=== PATIENT | male | born 1965 | race Caucasian/White ===

== ENCOUNTER → 2020-04-14 09:44 | Outpatient (BNVA) | payer OTHER, SELFPAY | PROVIDERS: Family Provider Nurse Practitioner; PCP Nurse Practitioner; Visit Provider Nurse Practitioner | DX: M25.512 Pain in left shoulder (principal) | CPT/HCPCS: 73030 ==

== ENCOUNTER → 2021-07-13 15:27 | Outpatient (BNVA) | payer OTHER, SELFPAY | PROVIDERS: Family Provider Nurse Practitioner; PCP Nurse Practitioner; Visit Provider Urology | DX: N52.1 Erectile dysfunction due to diseases classified elsewhere (principal) | CPT/HCPCS: 81003 ==

== ENCOUNTER → 2021-12-22 10:44 | Outpatient (BNVA) | payer OTHER, SELFPAY | PROVIDERS: Family Provider Nurse Practitioner; PCP Nurse Practitioner; Visit Provider Nurse Practitioner Family | DX: J32.9 Chronic sinusitis, unspecified (principal); K42.9 Umbilical hernia without obstruction or gangrene; I10 Essential (primary) hypertension | CPT/HCPCS: 80053; 80061 ==

== ENCOUNTER 2022-03-01 06:40 | Outpatient (CLI) | payer OTHER, SELFPAY ==
--- NOTE | 2022-03-01 07:00 | US_ITS ---
WS: [id number] ULTRASOUND SOFT TISSUES. Periumbilical region. HISTORY: K42.9 - Umbilical hernia without obstruction or gangrene COMPARISON: None available. TECHNIQUE: 2-D and color Doppler imaging is submitted. Mixed echogenicity at the umbilical level. Consistent with omental fat. No peristalsis is identified. No adjacent fluid. The protrusion omental fat measures 2.5 x 1.7 cm and extends over a length of 4.2 cm. There are few cystic areas within the omental fat. No peristalsis. US/US abdomen limited 60750 IMPRESSION: Umbilical hernia contains fat. No peristalsing loops of bowel.
== END 2022-03-01 06:41 | disposition home or self-care (01) ==
PROVIDERS: PCP Nurse Practitioner; Visit Provider Nurse Practitioner Family
DX: K42.9 Umbilical hernia without obstruction or gangrene (principal)
CPT/HCPCS: 76705

== ENCOUNTER 2022-03-25 06:11 | Emergency (ER) | payer OTHER, SELFPAY ==
[2022-03-25 06:13] VITALS: BP 166/88; PULSE 60; RESP 18; TEMP 36.7; O2SAT 99; BMI 38.0
[2022-03-25 06:19] VITALS: BP 162/95; RESP 18; O2SAT 98
--- NOTE | 2022-03-25 06:32 | CTR_ITS ---
PROCEDURE INFORMATION: Exam: CT Abdomen And Pelvis With Contrast Exam date and time: 03/25/2022 7:03 AM Age: 56 years old Clinical indication: Abdominal pain; Flank; Right; Additional info: Right flank pain TECHNIQUE: Imaging protocol: Computed tomography of the abdomen and pelvis with contrast. Radiation optimization: All CT scans at this facility use at least one of these dose optimization techniques: automated exposure control; mA and/or kV adjustment per patient size (includes targeted exams where dose is matched to clinical indication); or iterative reconstruction. Contrast material: OMNI 350; Contrast volume: 95 ml; Contrast route: INTRAVENOUS (IV); COMPARISON: US abdomen limited [id number] 03/01/2022 7:02 AM RADIATION DOSE METRICS: Total DLP (mGy-cm): 1372.53 FINDINGS: Lungs: The visualized portions of the lung bases are normal. Liver: Normal enhancement. No mass. Gallbladder and bile ducts: 9 x 5 mm gallstone is seen. No gallbladder wall thickening or pericholecystic fluid. No biliary ductal dilatation. Pancreas: Normal contour and enhancement. No ductal dilation. Spleen: Normal enhancement. No splenomegaly. Adrenal glands: Normal contour. No mass. Kidneys and ureters: Delayed right nephrogram is seen. There is [id number] right hydronephrosis and ureterectasis with a right ureterovesicular junction 2 x 2 mm calculus (series 4, image 89 and series 6, image 50) at the level of the hip joint. Normal enhancement of the left kidney. No renal masses. No left hydronephrosis, ureterectasis or ureteral calculi. Stomach and bowel: The noncontrast opacified stomach appears unremarkable. The noncontrast opacified small bowel loops appear unremarkable. The noncontrast opacified colonic loops appear unremarkable.The lack of orally administered contrast material limits bowel assessment. Appendix: No appendix is specifically identified. There is no evidence of fluid collections or inflammatory stranding in the right lower quadrant. Intraperitoneal space: No free air. No significant fluid collection. Vasculature: No abdominal aortic aneurysm. IVC and portal venous structures are unremarkable. Lymph nodes: No enlarged lymph nodes. Urinary bladder: No bladder wall thickening or debris. Reproductive: The prostate demonstrates mild nonspecific enlargement. The seminal vesicles are normal. Recommend correlation with clinical exam findings and PSA level assessment. Bones/joints: No acute osseous abnormality seen. Large superior endplate Schmorl's node is seen at the L3 level. Small superior endplate Schmorl's node is seen at the L2 level. Some lumbar spine degenerative osteophytes are seen. Mild bilateral hip degenerative changes are seen. Soft tissues: Small bilateral inguinal hernias are seen, containing peritoneal fat. Small umbilical hernia is seen, containing peritoneal fat. CT/CT abdomen pelvis w con* [id number] IMPRESSION: 1. Delayed right nephrogram. [id number] right hydronephrosis and ureterectasis with a right ureterovesicular junction 2 x 2 mm calculus (series 4, image 89 and series 6, image 50) at the level of the hip joint. 2. Gallstone.
--- NOTE | 2022-03-25 06:35 | ED_ITS ---
HPI - Abdominal Pain General: Chief Complaint: Abdominal Pain Stated Complaint: Lower back pain into abd area Time Seen by Provider: 03/25/22 06:20 Source: patient and family Mode of arrival: ambulatory Limitations: no limitations History of Present Illness: This patient comes to the emergency department this morning because of concerns of right flank and right abdominal pain. He states he was sleeping and was awakened approximately 4 AM by the symptoms. He states they are seemingly grabbing and do come and go a bit. He states there is some radiation to his right lower abdomen. He has never experienced symptoms like this previously. He states he had the urge to defecate but only is able to defecate a small amount and during the the act of increasing abdominal pressure he has momentary reduction in his symptoms. He denies any recent back injury. He states he has been in a feels working pretty normally the last several days. He does admit to drinking less water than usual. He states he is only produced a small amount of urine this morning and it is elizabeth in color. He denies any f madan or chills. He denies any history of cardiovascular symptoms to include chest pain, dyspnea exertion etc. No recent lifting etc. He is never smoked tobacco. He has been told he had an umbilical hernia that is scheduled for repair. He has never had a CAT scan. Does have a family history of kidney stones. MD elicited complaint: flank pain Pertinent past history: none Pain Consistency: intermittent and colicky Location: R flank Quality: cramping and dull Exacerbating factors: nothing Relieving factors: bowel movement Associated Symptoms: Reports no associated symptoms, nausea and vomiting; Denies chills, constipation, diarrhea, dysuria, fever(s), hematemesis, melena and syncope Review of Systems Const: Denies: fever(s) or chills Eyes: Denies: change in vision ENMT: Denies: throat pain, odynophagia, nasal discharge or nasal congestion Card: Denies: chest pain, palpitations, syncope or pre-syncope Resp: Denies: dyspnea, productive cough or non-productive cough GI: Reports: nausea and vomiting; Denies: hematemesis, diarrhea, constipation, pain on defecation or melena : Reports: flank pain and oliguria; Denies: dysuria, urinary frequency, urinary urgency or urinary dribbling Musc: Denies: neck pain, extremity pain or extremity swelling Skin/Breast: Denies: rash Neuro: Denies: headache(s), numbness in extremities or weakness in extremities Psych: Denies: anxiety or depression Endo: Denies: polyuria or polydipsia PFSH ED PFSH: Medical History (Updated 03/25/22 @ 08:35 by Jeevan Shetty DO) ROBBI on CPAP Surgical History No history of previous surgery Family History Father , AT AGE 89, UNKNOWN CAUSE No problems noted. 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 Const: COMMON NORMALS: patient oriented x3, no limitations and well nourished NUTRITIONAL APPEARANCE: overweight ORIENTATION/CONSCIOUSNESS: Yes awake HENMT: COMMON NORMALS: normocephalic, Normal nasal mucous membranes and turbinates present, moist oral mucous membranes and oropharynx normal HEAD & SCALP: normocephalic FACE & SINUS: normal facial exam NOSE: Normal nasal mucous membranes and turbinates present Eye: COMMON NORMALS: Equal, round and reactive pupils present, EOMs intact bilaterally and conjunctivae normal CONJUNCTIVA: Yes conjunctivae normal PUPIL: Yes Equal, round and reactive pupils present Neck/C-Spine: COMMON NORMALS: full ROM, no lymphadenopathy, no JVD and No carotid bruits Lymph: LYMPHATIC: no lymphadenopathy noted Chest: COMMONS NORMALS: normal inspection of the chest Resp: COMMON NORMALS: normal respiratory effort, No use of accessory muscles and clear to auscultation bilaterally AUSCULTATION: clear to auscultation bilaterally Cardio: COMMON NORMALS: no JVD, regular rate, regular rhythm, No murmurs present (Cardio) and Peripheral pulses 2+ throughout RATE: regular rate RHYTHM: regular rhythm PERIPHERAL PULSES: Peripheral pulses 2+ throughout GI: COMMON NORMALS: Normal to inspection, nondistended, normoactive bowel sounds present, no masses and no bruits OTHER: Tenderness right flank. No rebound no guarding. No ecchymosis. No skin rash. : BLADDER/KIDNEY EXAM: Yes CVA tenderness Back/Pelvis: COMMON NORMALS: thoracic and lumbar spine normal to inspection, thoraco-lumbar ROM normal and straight leg raise negative bilaterally GENERAL BACK: Yes CVA tenderness CVA tenderness: right, No erythema and No ecchymosis Extremity: COMMON NORMALS: normal to inspection, full ROM, capillary refill normal, no calf tenderness and no pedal edema Neuro: COMMON NORMALS: patient oriented x3, moves all extremities, no focal motor deficits and no sensory deficits noted CRANIAL NERVES: Yes CN normal except as noted Psych: COMMON NORMALS: mental status grossly normal Skin: COMMON NORMALS: no rashes or lesions noted, turgor normal, no jaundice and no petechiae GENERAL SKIN EXAM: no rashes or lesions noted and turgor normal Course Reevaluation(s): Reevaluation #1: Patient remains comfortable with significant pain improvement. No new or focal findings. Discussed expected course based on current findings. No evidence of infection or other renal dysfunction at this time. Discussed return precautions. Time: 08:34 Vital Signs: Vital signs: Vital Signs Temperature 98.1 F 03/25/22 06:13 Pulse Rate 76 03/25/22 07:44 Respiratory Rate 16 03/25/22 07:44 Blood Pressure 148/91 03/25/22 07:44 Pulse Oximetry 94 03/25/22 07:44 Oxygen Delivery Me thod 03/25/22 07:44 MDM - Abdominal Pain Medical Decision Making Gentleman comes to the emergency department with acute onset of right flank pain. Low risk for atherosclerosis or aneurysmal disease however imaging was undertaken in addition to other ancillary studies. Contrasted CT revealed right distal ureteral stone without any significant other concerning findings. Urinalysis is reassuring. He is comfortable and controlled. Plan on discharge to outpatient follow-up. Medical Records I reviewed the patient's medical records. Lab Data I reviewed the patient's lab results. : 03/25/22 06:32 03/25/22 06:32 Labs/Radiology: Radiology Impressions Abdomen/Pelvis CT 03/25/22 06:32 IMPRESSION: 1. Delayed right nephrogram. [id number] right hydronephrosis and ureterectasis with a right ureterovesicular junction 2 x 2 mm calculus (series 4, image 89 and series 6, image 50) at the level of the hip joint. 2. Gallstone. Laboratory Results WBC 7.6 10^3/uL (4.0-10.0) 03/25/22 06:32 RBC 5.04 10^6/uL (4.1-5.3) 03/25/22 06:32 Hgb 15.4 g/dL (11.7-16.6) 03/25/22 06:32 Hct 45.7 % (42.0-52.0) 03/25/22 06:32 MCV 90.7 fl (80-94) 03/25/22 06:32 MCH 30.6 pg (28.0-34.0) 03/25/22 06:32 MCHC 33.7 g/dL (30.0-36.0) 03/25/22 06:32 RDW 12.8 % (12.1-15.1) 03/25/22 06:32 Plt Count 179 10^3/cmm (130-400) 03/25/22 06:32 MPV 12.0 fL (7.4-10.4) H 03/25/22 06:32 Neut % (Auto) 71.1 % 03/25/22 06:32 Lymph % (Auto) 17.2 % 03/25/22 06:32 [place] % (Auto) 8.6 % 03/25/22 06:32 Eos % (Auto) 2.1 % 03/25/22 06:32 Baso % (Auto) 0.5 % 03/25/22 06:32 Neut # (Auto) 5.40 10^3/uL (1.8-7.7) 03/25/22 06:32 Lymph # (Auto) 1.3 10^3/uL (0.8-4.8) 03/25/22 06:32 [place] # (Auto) 0.7 10^3/uL (0.2-0.9) 03/25/22 06:32 Eos # (Auto) 0.2 10^3/uL (0.0-0.8) 03/25/22 06:32 Baso # (Auto) 0.0 10^3/uL (0.0-0.1) 03/25/22 06:32 Nucleated RBC % (auto) 0 % 03/25/22 06:32 Nucleated RBCs # 0.0 /100WBC 03/25/22 06:32 Sodium 143 mmol/L (136-145) 03/25/22 06:32 Potassium 3.9 mmol/L (3.5-5.1) 03/25/22 06:32 Chloride 108 mmol/L (98-107) H 03/25/22 06:32 Carbon Dioxide 23 mmol/L (22-29) 03/25/22 06:32 Anion Gap 15.9 (5-19) 03/25/22 06:32 BUN 16 mg/dL (6-20) 03/25/22 06:32 Creatinine 1.0 mg/dL (0.7-1.2) 03/25/22 06:32 GFR Calculation 77.0 mL/min (90-130) L 03/25/22 06:32 Glucose 141 mg/dL (65-115) H 03/25/22 06:32 Calculated Osmolality 300 mOsm/kg (285-295) H 03/25/22 06:32 Calcium 8.8 mg/dL (8.5-10.5) 03/25/22 06:32 Total Bilirubin 0.6 mg/dL (0.15-1.2) 03/25/22 06:32 AST 22 U/L (0-40) 03/25/22 06:32 ALT 33 U/L (0-41) 03/25/22 06:32 Alkaline Phosphatase 89 U/L (40-130) 03/25/22 06:32 Total Protein 6.7 g/dL (6.6-8.7) 03/25/22 06:32 Albumin 3.9 g/dL (3.5-5.2) 03/25/22 06:32 Globulin 2.8 g/dL (1.3-4.6) 03/25/22 06:32 Urine Color Yellow (Yellow) 03/25/22 07:52 Urine Appearance Clear (CLEAR) 03/25/22 07:52 Urine pH 5 (5-7) 03/25/22 07:52 Ur Specific [place] 1.005 (1.005-1.030) 03/25/22 07:52 Urine Protein Neg (Negative) 03/25/22 07:52 Urine Glucose (UA) Norm (Normal) 03/25/22 07:52 Urine Ketones Negative (Negative) 03/25/22 07:52 Urine Blood 2+ (Negative) H 03/25/22 07:52 Urine Nitrate Negative (Negative) 03/25/22 07:52 Urine Bilirubin Neg (Negative) 03/25/22 07:52 Urine Urobilinogen Norm mg/dL (Negative) 03/25/22 07:52 Ur Leukocyte Esterase Negative (Negative) 03/25/22 07:52 Urine RBC 0-4 /hpf (0-2) H 03/25/22 07:52 Urine WBC None /hpf (0-5) 03/25/22 07:52 Ur Squamous Epith Cells None /hpf (0-5) 03/25/22 07:52 Amorphous Sediment Not Reportable 03/25/22 07:52 Urine Bacteria None /hpf (NONE) 03/25/22 07:52 Urine Mucus Trace /hpf 03/25/22 07:52 Discharge Plan Discharge Patient Disposition: Home Clinical Impression: Renal calculus, right Condition: Stable Prescriptions: New Flomax 0.4 mg capsule 0.4 mg PO DAILY Qty: 7 0RF Levsin 0.125 mg tablet 0.125 mg PO TID PRN (Reason: spasms) Qty: 20 0RF ketorolac 10 mg tablet 10 mg PO Q8H PRN (Reason: pain) Qty: 14 0RF No Action famotidine 10 mg tablet 10 mg PO DAILY tadalafil 20 mg tablet 20 mg PO DAILY PRN (Reason: sexual activity) Qty: 20 12RF Rx Instructions: administer approximately 30min before sexual activity; NO NITROGLYCERIN! sildenafil 100 mg tablet 100 mg PO DAILY PRN (Reason: sexual activity) Qty: 20 12RF Rx Instructions: 1 hour before intercourse on empty stomach. NO NITROGLYCERIN! valsartan [Diovan] 40 mg tablet 40 mg PO DAILY Qty: 90 1RF promethazine-DM 6.25-15 mg/5 mL syrup 5 ml PO Q6H PRN (Reason: cough) Qty: 120 0RF amoxicillin-pot clavulanate 875-125 mg tablet 1 tab PO BID Qty: 20 0RF Discharge Orders: Discharge ED (Routine); Ordered 03/25/22 Ordered By: Jeevan Shetty Referrals: Javier Robertson, [facility] [Primary Care Provider] - 4-7 days (kidney stone) Discharge Diet: Usual diet Discharge Activity: Increase activity as tolerated Patient Instructions: Opioid Safety, Pain Management Activity Restrictions/Additional Instructions: As we discussed you have a kidney stone. Make sure you drink at least 2 quarts of water in addition to your other fluids daily. Take the medications as prescribed. If you develop fever, increasing pain seek care immediately otherwise follow-up with your primary care clinic in the next week to 10 days. Coding Level of Care Code ED Campus Safety Officer for [place] Fwd Exam Comprehensive
--- NOTE | 2022-03-25 06:40 | PC.NURSE ---
patient unable to provide urine sample at this time, voided amount inadequate.
[2022-03-25 06:43] LABS: Basophils % 0.5 %; Eosinophils # 0.2 10^3/uL (0.0-0.8); Eosinophils % 2.1 %; Hematocrit 45.7 % (42.0-52.0); Hemoglobin 15.4 g/dL (11.7-16.6); Lymphocytes # 1.3 10^3/uL (0.8-4.8); Lymphocytes % 17.2 %; Mean Corpuscular HGB Conc 33.7 g/dL (30.0-36.0); Mean Corpuscular Hemoglobin 30.6 pg (28.0-34.0); Mean Corpuscular Volume 90.7 fl (80-94); Monocytes # 0.7 10^3/uL (0.2-0.9); Monocytes % 8.6 %; Neutrophils % 71.1 %; Nucleated Red Blood Cells % 0 %; Platelet Count 179 10^3/cmm (130-400); Red Blood Count 5.04 10^6/uL (4.1-5.3); Red Cell Distribution Width 12.8 % (12.1-15.1); White Blood Count 7.6 10^3/uL (4.0-10.0)
[2022-03-25 06:48] VITALS: RESP 19
[2022-03-25] MEDS: ondansetron 2 mg/ML SDV 2 mL 4 MG IVP (06:48)
[2022-03-25] MEDS: HYDROmorphone 1 mg/mL INJ 1 mL IVP (06:48)
[2022-03-25] MEDS: sodium chloride 0.9% 1,000 ML 999 ML IV (06:48)
[2022-03-25 07:06] LABS: Alanine Aminotransferase 33 U/L (0-41); Albumin Level 3.9 g/dL (3.5-5.2); Alkaline Phosphatase 89 U/L (40-130); Anion Gap 15.9 (5-19); Aspartate Amino Transferase 22 U/L (0-40); Blood Urea Nitrogen 16 mg/dL (6-20); Calcium 8.8 mg/dL (8.5-10.5); Carbon Dioxide 23 mmol/L (22-29); Chloride 108 mmol/L (98-107); Globulin 2.8 g/dL (1.3-4.6); Glucose 141 mg/dL (65-115); Osmolality Calculated 300 mOsm/kg (285-295); Potassium 3.9 mmol/L (3.5-5.1); Sodium 143 mmol/L (136-145); Total Bilirubin 0.6 mg/dL (0.15-1.2); Total Protein 6.7 g/dL (6.6-8.7)
[2022-03-25] MEDS: iohexol 350 mg/mL 100 mL Btl IV (07:12)
[2022-03-25] MEDS: ketorolac 30 mg/mL INJ 15 MG IVP (07:27)
[2022-03-25] MEDS: tamsulosin 0.4 mg Capsule PO (07:43)
[2022-03-25 07:44] VITALS: BP 148/91; PULSE 76; RESP 16; O2SAT 94
[2022-03-25 08:22] LABS: Add Urine Microscopic? YES; Bilirubin Urine Neg (Negative); Blood Urine 2+ (Negative); Glucose Urine UA Norm (Normal); Ketones Urine Negative (Negative); Leukocyte Esterase Urine Negative (Negative); Mucus Urine TRACE /hpf; Nitrate Urine Negative (Negative); Protein Urine Neg (Negative); RBC Urine 0-4 /hpf (0-2); Specific Gravity, Urine 1.005 (1.005-1.030); Urine Appearance Clear (CLEAR); Urine Color Yellow (Yellow); Urobilinogen Urine Norm (Negative); pH Urine 5 (5-7)
[2022-03-25 08:24] LABS: Add Urine Culture? No
[2022-03-25 08:45] VITALS: BP 161/80; PULSE 63; RESP 21; O2SAT 98
== END 2022-03-25 08:46 | disposition home or self-care (01) ==
PROVIDERS: Emergency Provider Emergency Medicine; PCP Nurse Practitioner
DX: N13.2 Hydronephrosis with renal and ureteral calculous obstruction (principal); K80.80 Other cholelithiasis without obstruction; G47.33 Obstructive sleep apnea (adult) (pediatric); Z87.891 Personal history of nicotine dependence
CPT/HCPCS: 74177; 80053; 81001; 85025; 96361; 96374; 96375; 99285; J1170; J1885; J2405; J7030; Q9967

== ENCOUNTER 2022-06-27 07:18 | Outpatient (CLI) | payer OTHER, SELFPAY ==
--- NOTE | 2022-06-27 07:45 | US_ITS ---
WS: [id number] Gallbladder and right upper quadrant ultrasound, 06/27/2022 Clinical Data: gallbladder stone on CT scan Comparison: CT abdomen and pelvis, 03/25/2022 Findings: The gallbladder shows gallstones. The wall measures 0.3 cm which is the upper limits of normal with n o pericholecystic fluid. The common bile duct is 0.6 cm and there are no intrahepatic ductal abnormalities. Liver shows no cysts, masses or dilated intrahepatic ducts. The liver is enlarged measuring 26.23 cm with dense echotexture. The portal vein shows normal flow. The pancreas is not obscured by overlying bowel gas and no cyst, pseudocyst, or evidence of pancreati tis is noted. Right kidney measures 15.5 cm and no cyst, masses or hydronephrosis can be seen. The aorta measures 2.22 cm in greatest dimension and the inferior vena cava measures 2.07 cm. US/US gall bladder 25209 Impression: 1. Cholelithiasis with gallbladder wall at the upper limits of normal. 2. Hepatomegaly with dense liver.
== END 2022-06-27 07:19 | disposition home or self-care (01) ==
PROVIDERS: PCP Nurse Practitioner; Visit Provider Surgery
DX: K80.20 Calculus of gallbladder without cholecystitis without obstruction (principal); R16.0 Hepatomegaly, not elsewhere classified
CPT/HCPCS: 76705

== ENCOUNTER → 2022-07-12 12:02 | Outpatient (BNVA) | payer OTHER, SELFPAY | PROVIDERS: PCP Nurse Practitioner; Visit Provider Nurse Practitioner | DX: I10 Essential (primary) hypertension (principal); E11.65 Type 2 diabetes mellitus with hyperglycemia; E66.9 Obesity, unspecified; K76.0 Fatty (change of) liver, not elsewhere classified; G47.33 Obstructive sleep apnea (adult) (pediatric); Z99.89 Dependence on other enabling machines and devices | CPT/HCPCS: 80053; 80061; 83036 ==

== ENCOUNTER 2022-08-15 07:44 | Day surgery (SDC) | payer OTHER, SELFPAY ==
[2022-08-13 12:57] VITALS: BMI 37.7
[2022-08-15 08:12] VITALS: BP 166/89; PULSE 81; RESP 18; TEMP 36.6; O2SAT 96
[2022-08-15] MEDS: sodium chloride 0.9% 1,000 ML 30 ML IV (08:17)
[2022-08-15 08:29] LABS: Glucose Point of Care 110 mg/dL (70-110)
--- NOTE | 2022-08-15 09:14 | ANES.PREANE2 ---
Pre-Anesthetic Assessment Height/Weight: Height 2.01 m Weight 151.953 kg Temp Pulse Resp BP Pulse Ox O2 Del Method 97.8 F 81 18 166/89 96 08/15/22 08:12 08/15/22 08:12 08/15/22 08:12 08/15/22 08:12 08/15/22 08:12 08/15/22 08:12 Preop Diagnosis: Screening Operation Date: 08/15/22 09:30 Proposed Procedures p Colonoscopy 87122,Z12.11(Not Applicable) - Diego Boykin DO Familial anesthetic complications: None Was Beta Aj taken within 24 hours: N/A Was Clonidine taken within 24 hours: N/A Last intake: Intake Last Liquid Date 08/14/22 Last Liquid Time 22:00 Last Solid Date 08/13/22 Last Solid Time 19:00 Social Alcohol (Social) Exam alert, oriented x 3, clear to auscultation bilaterally and regular rate & rhythm Airway Submandibular: within normal limits Cervical ROM: within normal limits Mallampati: Class III Dentition: full Comments: Comments: Some missing teeth History/ROS No significant history except as noted and No significant complaints Pulmonary Cough, Exertional Dyspnea and Sleep Apnea CV/HEM Hypertension Kidney stones in March Hepatic Enlarged liver GI Gastroesophageal Reflux Disease (None this am, controlled with meds) Gallstones Metabolic Diabetes Mellitus and Morbid Obesity Musc/skel Lower Back Pain and Osteoarthritis/DJD Neuropsych None reported Anesthetic Plan ASA status: 3 Anesthesia: Anesthesia Evaluation, General and MAC Risk of > 500 ml blood loss (7ml/kg in children): No Medications/Allergies Home Medications Medication Instructions Recorded Confirmed Last Taken Type famotidine 10 mg tablet 10 mg PO DAILY PRN Heartburn 01/11/21 08/13/22 08/10/22 History sildenafil 100 mg tablet 100 mg PO DAILY PRN sexual 07/13/21 08/13/22 07/02/22 Rx activity #20 tabs metformin 500 mg tablet,extended 1,000 mg PO DAILY #60 tabs 07/13/22 08/13/22 08/13/22 Rx release 24 hr valsartan 40 mg tablet (Diovan) 40 mg PO DAILY #90 tabs 07/13/22 08/13/22 08/14/22 Rx Allergies Allergy/AdvReac Type Severity Reaction Status Date / Time No Known Allergies Allergy Verified 07/12/22 11:56 Current Medications Generic Name Dose Route Start Last Admin Trade Name Jcarlos PRN Reason Stop Dose Admin Sodium Chloride 1,000 mls @ 30 mls/hr 08/15/22 08:00 08/15/22 08:17 Sodium Chloride 0.9% IV 08/16/22 07:59 30 mls/hr .Q24H VIVEK Administration PFSH Anesthesia Medical History (Updated 07/12/22 @ 20:31 by [facility] Romero) Diabetes mellitus with hyperglycemia Essential (primary) hypertension Hepatic steatosis ROBBI on CPAP Surgical History No history of previous surgery Family History Father , AT AGE 89, UNKNOWN CAUSE No problems noted. 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
--- NOTE | 2022-08-15 09:30 | PM.HP ---
Providers/Chief Complaint Primary Care Provider: [facility] Rom[facility] Chief Complaint: z12.11 ENCOUNTER FOR SCREENING History of Present Illness [place] Hugo is a 57 year old male here for his first screening colonoscopy Medications/Allergies Home Medications Medication Instructions Recorded Confirmed Last Taken Type famotidine 10 mg tablet 10 mg PO DAILY PRN Heartburn 01/11/21 08/13/22 08/10/22 History sildenafil 100 mg tablet 100 mg PO DAILY PRN sexual 07/13/21 08/13/22 07/02/22 Rx activity #20 tabs metformin 500 mg tablet,extended 1,000 mg PO DAILY #60 tabs 07/13/22 08/13/22 08/13/22 Rx release 24 hr valsartan 40 mg tablet (Diovan) 40 mg PO DAILY #90 tabs 07/13/22 08/13/22 08/14/22 Rx Allergies Allergy/AdvReac Type Severity Reaction Status Date / Time No Known Allergies Allergy Verified 07/12/22 11:56 PFSH Acute PFSH: Medical History (Updated 08/15/22 @ 09:31 by Diego Boykin DO) Diabetes mellitus with hyperglycemia Essential (primary) hypertension Hepatic steatosis ROBBI on CPAP Surgical History No history of previous surgery Family History Father , AT AGE 89, UNKNOWN CAUSE No problems noted. 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 The patient is understanding of the risks and wishes to proceed. Attestations Medical Necessity Statement*: Home Coding Level of Care Code Acute Code for Chg Fwd Diagnoses Colon cancer screening Z12.11
[2022-08-15 09:54] VITALS: BP 141/84; PULSE 65; RESP 16; TEMP 36.9; O2SAT 94
[2022-08-15 10:06] VITALS: BP 123/88; PULSE 64; RESP 16; O2SAT 94
--- NOTE | 2022-08-15 15:48 | ANE.PACU2 ---
Inpatient post-anesthesia follow up: Airway intact: Yes Vital signs: Temperature 98.4 F Pulse Rate 64 Respiratory Rate 16 Blood Pressure 123/88 Pulse Oximetry 94 Oxygen Delivery Me thod Room Air Oxygen Flow Rate Fraction of Inspir ed Oxygen Hydration adequate: Yes Nausea and vomiting: No Pain level: 2 Mental status: Baseline
== END 2022-08-15 10:41 | disposition home or self-care (01) ==
PROVIDERS: PCP Nurse Practitioner; Visit Provider Surgery
PROC: 0DJD8ZZ Inspection of Lower Intestinal Tract, Via Natural or Artificial Opening Endoscopic (ICD-10-PCS; CPT 45378; principal; 2022-08-15 09:30)
DX: Z12.11 Encounter for screening for malignant neoplasm of colon (principal); E11.65 Type 2 diabetes mellitus with hyperglycemia; I10 Essential (primary) hypertension; G47.33 Obstructive sleep apnea (adult) (pediatric); K21.9 Gastro-esophageal reflux disease without esophagitis; E66.01 Morbid (severe) obesity due to excess calories; Z68.37 Body mass index [BMI] 37.0-37.9, adult
CPT/HCPCS: 36416; 45378; 82962; J2704; J7030

== ENCOUNTER 2022-09-13 06:28 | Day surgery (SDC) | payer OTHER, SELFPAY ==
[2022-09-12 08:19] VITALS: BMI 37.1
[2022-09-13] VITALS (10 sets, daily range): BP systolic 136–170; BP diastolic 77–100; PULSE 61–83; RESP 16–22; TEMP 36.1–36.6; O2SAT 93–99
--- NOTE | 2022-09-13 07:08 | W.PM.OPSUD ---
Surgery/Procedure H&P Update DATE OF PROCEDURE: September 13, 2022 DATE H&P PERFORMED: 09/05/22 H&P UPDATE INFORMATION: I have reviewed H&P completed within last 30 days, I have examined patient prior to procedure and No changes to prior documentation PREOP DIAGNOSIS: Screening PLANNED PROCEDURE: Operation Date: 09/13/22 08:10 Proposed Procedures p 08965 lap lionel K80.10(Not Applicable) - Diego Boykin DO
[2022-09-13 07:24] LABS: Glucose Point of Care 90 mg/dL (70-110)
[2022-09-13] MEDS: sodium chloride 0.9% 1,000 ML 30 ML IV (07:31)
--- NOTE | 2022-09-13 07:42 | ANES.PREANE2 ---
Pre-Anesthetic Assessment Height/Weight: Height 2.01 m Weight 149.685 kg Temp Pulse Resp BP Pulse Ox O2 Del Method 97.4 F L 68 18 136/82 95 09/13/22 07:05 09/13/22 07:05 09/13/22 07:05 09/13/22 07:05 09/13/22 07:05 09/13/22 07:05 Preop Diagnosis: Symptomatic cholelithiasis Operation Date: 09/13/22 08:10 Proposed Procedures p 32294 lap lionel K80.10(Not Applicable) - Diego Boykin DO Familial anesthetic complications: none Was Beta Aj taken within 24 hours: N/A Was Clonidine taken within 24 hours: N/A Last intake: Intake Last Liquid Date 09/12/22 Last Liquid Time 22:00 Last Solid Date 09/12/22 Last Solid Time 17:00 Social No alcohol and No tobacco Exam alert, oriented x 3, clear to auscultation bilaterally and regular rate & rhythm Airway Submandibular: within normal limits Cervical ROM: within normal limits Mallampati: Class III Dentition: chipped Pulmonary Sleep Apnea CV/HEM Hypertension GI Gastroesophageal Reflux Disease Metabolic Diabetes Mellitus and Morbid Obesity Anesthetic Plan ASA status: 3 Anesthesia: General Medications/Allergies Home Medications Medication Instructions Recorded Confirmed Last Taken Type famotidine 10 mg tablet 10 mg PO DAILY PRN Heartburn 01/11/21 09/13/22 1 Day Ago History ~09/12/22 metformin 500 mg tablet,extended 1,000 mg PO DAILY #60 tabs 08/21/22 09/12/22 09/11/22 Rx release 24 hr naltrexone 8 mg-bupropion 90 mg 2 tab PO Q12H #120 tabs 08/21/22 09/12/22 09/11/22 Rx tablet,extended release (Contrave) semaglutide 0.25 mg or 0.5 mg (2 0.25 mg (0.2 mL) SUBCUT .weekly 08/21/22 09/12/22 09/12/22 Rx mg/1.5 mL) subcutaneous pen #1.5 mL injector (Ozempic) sildenafil 100 mg tablet 100 mg PO DAILY PRN sexual 08/21/22 09/12/22 Unknown Rx activity #20 tabs valsartan 80 mg tablet (Diovan) 80 mg PO DAILY #30 tabs 0209/12/22 09/12/22 Rx pantoprazole 40 mg tablet,delayed 40 mg PO BID 6 weeks #84 tabs 09/05/22 09/12/22 Unknown Rx release (Protonix) Allergies Allergy/AdvReac Type Severity Reaction Status Date / Time No Known Allergies Allergy Verified 09/13/22 06:57 Current Medications Generic Name Dose Route Start Last Admin Trade Name Jimiq PRN Reason Stop Dose Admin Sodium Chloride 1,000 mls @ 30 mls/hr 09/13/22 07:00 09/13/22 07:31 Sodium Chloride 0.9% IV 09/14/22 06:59 30 mls/hr .Q24H VIVEK Administration PFSH Anesthesia Medical History Diabetes mellitus with hyperglycemia Essential (primary) hypertension Hepatic steatosis ROBBI on CPAP Surgical History History of colonoscopy 08/15/22 Family History Father , AT AGE 89, UNKNOWN CAUSE No problems noted. 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
[2022-09-13] MEDS: ceFAZolin 3,000 MG in sodium chloride 0.9% (100 ml) 100 ML 200 MG IV (08:23)
[2022-09-13] MEDS: lidocaine-epi 2% 20 mL INJ INJECTION (08:41)
--- NOTE | 2022-09-13 09:33 | P.OP_ITS ---
Operative Report Date of procedure: September 13, 2022 Pre-op diagnosis: Preop Diagnosis Symptomatic cholelithiasis Post-op diagnosis: same Procedure done: Laparoscopic cholecystectomy Specimens removed/disposition: Gallbladder Surgeon: Dr. Diego Boykin DO Anesthesia: General Estimated blood loss (mL): 5 Complications: None apparent Brief History: This is a very pleasant 57-year-old gentleman who was found to have symptomatic cholelithiasis. Laparoscopic cholecystectomy was indicated. The risk and benefits were explained and documented. Procedure: Patient was wheeled into the operative room and placed on the OR table in a supine position. Abdomen was inspected prepped and draped in usual sterile fashion. Time-out was performed and all present were in agreement. A 15 blade scalp was used to make a stab incision in the left upper quadrant and intra- abdominal insufflation was achieved using a Veress needle. After localizing the tissue incisions were made and a 5 millimeter trocar was placed into the umbilicus as well as 2 in the right upper quadrant. A 12 millimeter trocar was placed in the epigastrium. Gallbladder was grasped and elevated. The triangle of Calot was carefully dissected using blunt dissection and electrocautery until the triangle of Calot clearly identified. The cystic duct was clipped proximally and double clipped distally. The duct was then ligated proximally. The cystic artery was doubly clipped and ligated. The gallbladder was then removed from the liver bed using electrocautery. The gallbladder was removed from the abdomen using an Endo-Catch bag through the epigastric incision. The liver bed was inspected and no bleeding was seen. The 12 mm port site was closed with 0 Vicryl in a Dimitri-Izabel in a [id number] fashion. The abd omen was irrigated and suctioned. All ports removed. Skin was washed and dried. Incisions were closed with 4-0 Monocryl in a subcuticular interrupted fashion. Skin glue was applied. Patient tolerated the procedure well.
[2022-09-13] MEDS: fentaNYL 50 mcg/mL INJ 2mL IVP (09:40)
[2022-09-13] MEDS: HYDROcodone-acetaminophen 10-325 mg Tablet 1 TAB PO (10:22)
--- NOTE | 2022-09-13 14:39 | ANE.PACU2 ---
Inpatient post-anesthesia follow up: Airway intact: Yes Vital signs: Temperature 97 F Pulse Rate 66 Respiratory Rate 16 Blood Pressure 144/77 Pulse Oximetry 93 Oxygen Delivery Me thod Room Air Oxygen Flow Rate 6 Fraction of Inspir ed Oxygen Hydration adequate: Yes Nausea and vomiting: No Pain level: 2 Mental status: Baseline
== END 2022-09-13 10:48 | disposition home or self-care (01) ==
PROVIDERS: PCP Nurse Practitioner; Visit Provider Surgery
PROC: 0FT44ZZ Resection of Gallbladder, Percutaneous Endoscopic Approach (ICD-10-PCS; CPT 47562; principal; 2022-09-13 08:00)
DX: K80.10 Calculus of gallbladder with chronic cholecystitis without obstruction (principal); G47.30 Sleep apnea, unspecified; I10 Essential (primary) hypertension; K21.9 Gastro-esophageal reflux disease without esophagitis; E66.01 Morbid (severe) obesity due to excess calories; Z68.37 Body mass index [BMI] 37.0-37.9, adult; Z79.84 Long term (current) use of oral hypoglycemic drugs; E11.65 Type 2 diabetes mellitus with hyperglycemia; G47.33 Obstructive sleep apnea (adult) (pediatric)
CPT/HCPCS: 47562; 36416; 82962; 88304; A4216; J0330; J0690; J1100; J2250; J2405; J2704; J3010; J3490; J7030

== ENCOUNTER → 2022-11-12 12:15 | Outpatient (BNVA) | payer OTHER, SELFPAY | PROVIDERS: PCP Nurse Practitioner; Visit Provider Nurse Practitioner | DX: E11.65 Type 2 diabetes mellitus with hyperglycemia (principal); E66.01 Morbid (severe) obesity due to excess calories; I10 Essential (primary) hypertension | CPT/HCPCS: 80053; 83036 ==

== ENCOUNTER → 2023-02-04 12:08 | Outpatient (BNVA) | payer OTHER, SELFPAY | PROVIDERS: PCP Nurse Practitioner; Visit Provider Nurse Practitioner | DX: E66.01 Morbid (severe) obesity due to excess calories (principal); E11.65 Type 2 diabetes mellitus with hyperglycemia | CPT/HCPCS: 80053 ==

== ENCOUNTER 2023-04-18 19:30 | Emergency (ER) | payer BC, SELFPAY ==
[2023-04-18 19:33] VITALS: BP 168/84; PULSE 92; RESP 16; TEMP 37; O2SAT 95; BMI 33.7
--- NOTE | 2023-04-18 19:43 | XRR_ITS ---
PROCEDURE INFORMATION: Exam: XR Right Hand Exam date and time: 04/18/2023 7:44 PM Age: 57 years old Clinical indication: Injury or trauma; Other: Tractor; Swelling (edema); Hand; Right TECHNIQUE: Imaging protocol: Radiologic exam of the right hand. Views: 3 or more views. COMPARISON: No relevant prior studies available. FINDINGS: Bones/joints: No acute fracture. No dislocation. Normal bone mineralization. No joint effusion. Joint spaces are maintained. Soft tissues: No soft tissue swelling. Radiopaque foci in the soft tissues dorsal to the 3rd PIP joint and the 5th proximal phalanx, it is uncertain whether these may represent foreign bodies related to the patient's current trauma. XR/XR hand RT min 3V* [id number] IMPRESSION: 1. No acute fracture of the right hand. Followup imaging recommended in 7-14 days if clinical concern for fracture persists. 2. Radiopaque foci in the soft tissues dorsal to the 3rd PIP joint and the 5th proximal phalanx, it is uncertain whether these may represent foreign bodies related to the patient's current trauma.
[2023-04-18 19:53] VITALS: RESP 14
--- NOTE | 2023-04-18 19:56 | W.ED.EXTPRO ---
HPI - Extremity Problem General: Chief complaint: Extremity Injury, Upper Stated complaint: Hurt right hand Time Seen by Provider: 04/18/23 19:43 Source: patient Mode of arrival: ambulatory Limitations: no limitations History of Present Illness: 57-year-old male who states he was changing a tractor tire and was trying to get iron tire to take area and had a ratchet strap around he states he blew it up and put too much pressure on it the ratchet strap and busted off in the middle part hit him in the right hand he has pain to the dorsum of his hand denies any pain in his fingers states we does bend his fingers he has some pain in his hand denies any wrist pain denies other injuries Associated symptoms: Deny chest pain, fever(s) or rash Review of Systems Const: Denies: fever(s), chills, body aches or change in appetite Eyes: Denies: blurry vision or eye discomfort ENMT: Denies: throat pain or dental pain Card: Denies: chest pain Resp: Denies: dyspnea GI: Denies: abdominal pain, nausea, vomiting or diarrhea Musc: Reports: extremity pain; Denies: neck pain or back pain Skin/Breast: Denies: rash Neuro: Denies: headache(s) PFSH ED PFSH: Medical History Diabetes mellitus with hyperglycemia Hepatic steatosis ROBBI on CPAP Surgical History History of colonoscopy 08/15/22 History of laparoscopic cholecystectomy Family History Father , AT AGE 89, UNKNOWN CAUSE No problems noted. 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 Do you think of yourself as: Straight/Heterosexual Current gender identity: Male Physical Exam Const: COMMON NORMALS: no acute distress and patient oriented x3 HENMT: COMMON NORMALS: normocephalic and atraumatic HEAD & SCALP: normocephalic and atraumatic Eye: COMMON NORMALS: conjunctivae normal CONJUNCTIVA: Yes conjunctivae normal Neck/C-Spine: COMMON NORMALS: supple Chest: COMMONS NORMALS: normal inspection of the chest Resp: COMMON NORMALS: normal respiratory effort Extremity: OTHER: Tenderness over dorsum of right hand no obvious deformities Neuro: COMMON NORMALS: patient oriented x3 Psych: COMMON NORMALS: mental status grossly normal Skin: COMMON NORMALS: no rashes or lesions noted GENERAL SKIN EXAM: no rashes or lesions noted Course Vital Signs: Vital signs: Vital Signs Temperature 98.6 F 04/18/23 19:33 Pulse Rate 92 04/18/23 19:33 Respiratory Rate 14 04/18/23 19:53 Blood Pressure 168/84 04/18/23 19:33 Pulse Oximetry 95 04/18/23 19:33 MDM - Extremity (Nontraumatic) Medical Decision Making The patient presents here with contusion to his hand x-ray shows no fractures he is stable for discharge Medical Records I reviewed the patient's medical records. XR interpretation done by ED provider, pending radiology final review ED provider radiology interpretation(s): X-ray right hand no obvious fracture Discharge Plan Discharge Patient Disposition: Home Clinical Impression: Contusion of hand, right Condition: Stable Prescriptions: No Action famotidine 10 mg tablet 10 mg PO DAILY PRN (Reason: Heartburn) sildenafil 100 mg tablet 100 mg PO DAILY PRN (Reason: sexual activity) Qty: 20 12RF Rx Instructions: 1 hour before intercourse on empty stomach. NO NITROGLYCERIN! Contrave 8-90 mg tablet extended release 2 tab PO Q12H Qty: 120 2RF Ozempic 0.25 mg or 0.5 mg(2 mg/1.5 mL) pen injector 0.5 mg SUBCUT .weekly Qty: 1.5 2RF DOK 100 mg capsule 100 mg PO BID Qty: 14 0RF Discharge Orders: Discharge ED (Routine); Ordered 04/18/23 Ordered By: Jose King Referrals: Javier Robertson, CHILD PROTECTIVE INVESTIGATOR-C [Primary Care Provider] - 1-3 days Discharge Diet: Advance as tolerated Discharge Activity: Resume usual activity Patient Instructions: Contusion in Adults (ED) Coding Level of Care Code ED Journal Clerk for Harmony Vazquez
== END 2023-04-18 20:10 | disposition home or self-care (01) ==
PROVIDERS: Emergency Provider Emergency Medicine; PCP Nurse Practitioner
DX: S60.221A Contusion of right hand, initial encounter (principal); E11.9 Type 2 diabetes mellitus without complications; W20.8XXA Other cause of strike by thrown, projected or falling object, initial encounter
CPT/HCPCS: 73130; 99283

== ENCOUNTER → 2023-04-24 13:54 | Outpatient (BNVA) | payer BC, SELFPAY | PROVIDERS: PCP Nurse Practitioner; Visit Provider Nurse Practitioner Family | DX: H66.91 Otitis media, unspecified, right ear (principal); E11.65 Type 2 diabetes mellitus with hyperglycemia; Z79.899 Other long term (current) drug therapy | CPT/HCPCS: 80053; 80061; 83036; 85025 ==

== ENCOUNTER → 2023-08-20 07:52 | Outpatient (BNVA) | payer BC, SELFPAY | PROVIDERS: PCP Nurse Practitioner; Visit Provider Podiatrist Foot & Ankle Surgery | DX: B35.1 Tinea unguium; M72.2 Plantar fascial fibromatosis | CPT/HCPCS: 73630 ==

== ENCOUNTER → 2023-10-15 14:42 | Outpatient (BNVA) | payer BC, SELFPAY | PROVIDERS: PCP Nurse Practitioner; Visit Provider Nurse Practitioner | DX: E11.9 Type 2 diabetes mellitus without complications; N52.1 Erectile dysfunction due to diseases classified elsewhere | CPT/HCPCS: 80053; 83036; 84403 ==

== ENCOUNTER 2023-10-31 14:24 | Outpatient (CLI) | payer BC, SELFPAY | END 2023-10-31 14:25 | disposition home or self-care (01) | LOC: SPT 14:24 | PROVIDERS: PCP Nurse Practitioner; Visit Provider Podiatrist Foot & Ankle Surgery | DX: Z46.89 Encounter for fitting and adjustment of other specified devices (principal); M72.2 Plantar fascial fibromatosis | CPT/HCPCS: L3030 ==

== ENCOUNTER → 2024-12-04 14:36 | Outpatient (BNVA) | payer BC, SELFPAY | PROVIDERS: PCP Nurse Practitioner; Visit Provider Registered Nurse Neonatal Intensive Care | DX: Z87.898 Personal history of other specified conditions (principal); T14.8XXA Other injury of unspecified body region, initial encounter; W57.XXXA Bitten or stung by nonvenomous insect and other nonvenomous arthropods, initial encounter | CPT/HCPCS: 82785; 86001; 86003; 86008; 86618; 86666; 86757 ==

== ENCOUNTER 2024-12-07 16:56 | Emergency (ER) | payer BC, SELFPAY ==
[2024-12-07 17:11] VITALS: BP 124/76; PULSE 80; RESP 16; TEMP 36.7; O2SAT 98
--- NOTE | 2024-12-07 17:21 | ECG_ITS ---
[facility]07 Pat Name: London Hugo Department: Room: Gender: Male Casing Mixer: : 1965 Requested By: Andrew Hernandez Order Number: [id number] Reading MD: Bao Dennison M.D. Measurements Intervals [place] Rate: 79 P: 31 WV: 160 QRS: 25 QRSD: 94 T: 86 QT: 280 QTc: 322 Interpretive Statements SINUS RHYTHM SEPTAL MYOCARDIAL INFARCTION , PROBABLY OLD [40+ ms Q WAVE IN V1/V2] No previous ECG available for comparison Electronically Signed On 12-09-2024 22:07:48 CDT by Bao Dennison M.D. [id number]
--- NOTE | 2024-12-07 17:21 | XRR_ITS ---
PROCEDURE INFORMATION: Exam: XR Chest Exam date and time: 12/07/2024 5:37 PM Age: 59 years old Clinical indication: Pain; Chest pressure; Additional info: Chest pain TECHNIQUE: Imaging protocol: Radiologic exam of the chest. Views: 1 view. COMPARISON: CT abdomen pelvis w con* [id number] 03/25/2022 7:03 AM FINDINGS: Lungs: Unremarkable. No consolidation. Pleural spaces: Unremarkable. No pleural effusion. No pneumothorax. Heart/Mediastinum: Unremarkable. No cardiomegaly. Bones/joints: Unremarkable. XR/XR chest 1V portable [id number] IMPRESSION: No acute findings.
--- NOTE | 2024-12-07 17:33 | ED_ITS ---
HPI - Chest Pain 2 General: Chief Complaint: Chest Pain Stated Complaint: urgent care, chest heaviness, L arm pain Time Seen by Provider: 12/07/24 17:20 History of Present Illness: 59-year-old male presents emergency room complaining of chest pain for the last 3 days. Had some nausea and vomiting last week. Has a slight productive cough. Denies fever at times she will have shortness of breath associated with this. The only triggers he has found is when he eats it made him sick and he would throw up. No previous history of coronary artery disease no previous history of chronic respiratory disease history of hypertension was briefly on antihypertensives is not on them any cardiac workup Associated symptoms: Deny abdominal pain, dyspnea or fever(s) Related Data Home Medications ?Medication ?Instructions ?Recorded ?Confirmed tirzepatide 15 mg/0.5 mL 30 mg SUBCUT 12/04/24 subcutaneous pen injector (Kylah) Previous Rx's ?Medication ?Instructions ?Recorded Bipap machine and supplies #1 ea 05/14/23 custom orthotic inserts #1 ea 09/11/23 doxycycline hyclate 100 mg tablet 100 mg PO BID 7 days #14 tabs 12/04/24 aspirin 81 mg tablet,delayed 81 mg PO DAILY #30 tabs 0 12/07/24 release isosorbide mononitrate 30 mg 30 mg PO DAILY #30 tabs 0 12/07/24 tablet,extended release 24 hr Allergies Allergy/AdvReac Type Severity Reaction Status Date / Time No Known Allergies Allergy Verified 12/07/24 15:46 Review of Systems 2 Const: Denies: fever(s) or chills Card: Reports: chest pain Resp: Denies: dyspnea GI: Denies: abdominal pain : Denies: dysuria, urinary frequency or urinary urgency Musc: Denies: neck pain or back pain Skin/Breast: Denies: rash PFSH ED 2 PFSH: Medical History ROBBI treated with BiPAP Diabetes mellitus with hyperglycemia Hepatic steatosis Surgical History History of laparoscopic cholecystectomy History of colonoscopy 08/15/22 Family History Father , AT AGE 89, UNKNOWN CAUSE No problems noted. 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 Do you think of yourself as: Straight/Heterosexual Current gender identity: Male Physical Exam 2 Const: GENERAL APPEARANCE: cooperative ORIENTATION/CONSCIOUSNESS: Yes awake, Yes oriented to person, Yes oriented to place and Yes oriented to time HENMT: COMMON NORMALS: normocephalic, atraumatic and hearing grossly normal bilaterally HEAD & SCALP: normocephalic and atraumatic Resp: COMMON NORMALS: normal respiratory effort, No retractions, No use of accessory muscles and clear to auscultation bilaterally AUSCULTATION: clear to auscultation bilaterally Cardio: COMMON NORMALS: regular rate, regular rhythm and No murmurs present (Cardio) RATE: regular rate RHYTHM: regular rhythm GI: COMMON NORMALS: Soft to palpation and No hepatosplenomegaly present A USCULTATION: Yes normoactive bowel sounds PALPATION: Yes Soft to palpation, No Tenderness to palpation present (GI), No Guarding due to palpation present (GI) and Yes No hepatosplenomegaly present Extremity: COMMON NORMALS: normal to inspection, capillary refill normal, no clubbing, cyanosis or edema, no calf tenderness and no pedal edema Neuro: SENSORIUM/ORIENTATION: Yes oriented to person, Yes oriented to place and Yes oriented to time Skin: COMMON NORMALS: no rashes or lesions noted GENERAL SKIN EXAM: no rashes or lesions noted Course 2 Vital Signs: Vital signs: Vital Signs Temperature 98.1 F 12/07/24 17:11 Pulse Rate 68 12/07/24 20:36 Respiratory Rate 18 12/07/24 20:36 Blood Pressure 140/81 12/07/24 20:36 Pulse Oximetry 98 12/07/24 20:36 Oxygen Delivery Me thod Room Air 12/07/24 20:00 MDM - Chest Pain Medical Decision Making EKG does not show any acute changes cardiac enzymes trending negative. Will discharge patient home ask him start baby aspirin will start isosorbide mononitrate cinema for outpatient Lexiscan sestamibi stress test follow-up with cardiology Medical Records I reviewed the patient's medical records. Lab Data I reviewed the patient's lab results. 12/07/24 17:33 12/07/24 17:33 Radiology Impressions Chest X-Ray 12/07/24 17:21 IMPRESSION: No acute findings. Laboratory Results WBC 5.29 10^3/uL (3.29-11.43) 12/07/24 17:33 RBC 5.13 10^6/uL (3.85-5.65) 12/07/24 17:33 Hgb 15.40 g/dL (11.27-16.99) 12/07/24 17:33 Hct 46.4 % (37-53) 12/07/24 17:33 MCV 90.4 fl (82-101) 12/07/24 17:33 MCH 30.0 pg (27-33) 12/07/24 17:33 MCHC 33.2 g/dL (30-55) 12/07/24 17:33 RDW 13.0 % (12.1-15.1) 12/07/24 17:33 Plt Count 181 10^3/cmm (157-399) 12/07/24 17:33 MPV 11.7 fL (7.4-10.4) H 12/07/24 17:33 Neut % (Auto) 65.4 % 12/07/24 17:33 Lymph % (Auto) 15.1 % 12/07/24 17:33 Bay % (Auto) 11.2 % 12/07/24 17:33 Eos % (Auto) 6.8 % 12/07/24 17:33 Baso % (Auto) 0.6 % 12/07/24 17:33 Neut # (Auto) 3.46 10^3/uL (1.8-7.7) 12/07/24 17:33 Lymph # (Auto) 0.8 10^3/uL (0.8-4.8) 12/07/24 17:33 Bay # (Auto) 0.6 10^3/uL (0.2-0.9) 12/07/24 17:33 Eos # (Auto) 0.4 10^3/uL (0.0-0.8) 12/07/24 17:33 Baso # (Auto) 0.0 10^3/uL (0.0-0.1) 12/07/24 17:33 Nucleated RBC % (auto) 0 % 12/07/24 17:33 Nucleated RBCs # 0.0 /100WBC 12/07/24 17:33 Sodium 139 mmol/L (136-145) 12/07/24 17:33 Potassium 3.9 mmol/L (3.5-5.1) 12/07/24 17:33 Chloride 102 mmol/L (98-107) 12/07/24 17:33 Carbon Dioxide 23 mmol/L (22-29) 12/07/24 17:33 Anion Gap 17.9 (5-19) 12/07/24 17:33 BUN 11 mg/dL (8-23) 12/07/24 17:33 Creatinine 0.9 mg/dL (0.7-1.2) 12/07/24 17:33 GFR Calculation 86.1 mL/min (90-130) L 12/07/24 17:33 Glucose 100 mg/dL (65-115) 12/07/24 17:33 Calculated Osmolality 287 mOsm/kg (285-295) 12/07/24 17:33 Calcium 8.8 mg/dL (8.5-10.5) 12/07/24 17:33 Total Bilirubin 0.6 mg/dL (0.15-1.2) 12/07/24 17:33 AST 29 U/L (0-40) 12/07/24 17:33 ALT 42 U/L (0-41) H 12/07/24 17:33 Alkaline Phosphatase 102 U/L (40-130) 12/07/24 17:33 Troponin T Baseline 60 ng/L (0-15) H 12/07/24 17:33 Troponin T 120 Minute 60.52 ng/L (0-15) H 12/07/24 19:03 Delta Troponin T 0.52 ABS# (0-10) 12/07/24 19:03 NT-Pro-B Natriuret Pep 914 pg/mL (0-125) H 12/07/24 17:33 Total Protein 6.4 g/dL (6.6-8.7) L 12/07/24 17:33 Albumin 4.0 g/dL (3.5-5.2) 12/07/24 17:33 Globulin 2.4 g/dL (1.3-4.6) 12/07/24 17:33 Urine Color [place] (Yellow) A 12/07/24 19:57 Urine Appearance Clear (CLEAR) 12/07/24 19:57 Urine pH 5.5 (5-7) 12/07/24 19:57 Ur Specific [place] 1.034 (1.005-1.030) H 12/07/24 19:57 Urine Protein Trace (Negative) A 12/07/24 19:57 Urine Glucose (UA) Negative (Normal) 12/07/24 19:57 Urine Ketones Trace (Negative) 12/07/24 19:57 Urine Blood Negative (Negative) 12/07/24 19:57 Urine Nitrate Negative (Negative) 12/07/24 19:57 Urine Bilirubin 1+ (Negative) H 12/07/24 19:57 Urine Urobilinogen 1.0 mg/dL (Negative) 12/07/24 19:57 Ur Leukocyte Esterase Negative (Negative) 12/07/24 19:57 Urine RBC 3-5 /hpf (0-2) 12/07/24 19:57 Urine WBC 0-5 /hpf (0-5) 12/07/24 19:57 Ur Squamous Epith Cells 0-5 /hpf (0-5) 12/07/24 19:57 Amorphous Sediment Not Reportable 12/07/24 19:57 Urine Bacteria None seen /hpf (NONE) 12/07/24 19:57 Hyaline Casts 2.87 /lpf 12/07/24 19:57 All radiology interpretation(s) finalized by discharge EKG Data EKG 1: Interpretation: EKG 12/07/2024 1708 EKG shows a normal sinus rhythm there is some artifact present at baseline. Q waves in V1 to sinus rhythm of 79 with a PA interval of 160 QTc 322 there is no evidence of acute ST changes. EKG 2: Interpretation: EKG 12/07/2024 1948 sinus rhythm with PVCs rate of 81 PA interval 158 QTc 385[address] No acute ST segment changes. Discharge Plan Discharge Patient Disposition: Home Clinical Impression: Atypical chest pain Condition: Stable Prescriptions: New isosorbide mononitrate 30 mg tablet extended release 24 hr 30 mg PO DAILY Qty: 30 0RF aspirin 81 mg tablet,delayed release (DR/EC) 81 mg PO DAILY Qty: 30 0RF No Action (DME) custom orthotic inserts See Rx Instructions .Route .MEDSUPPLY Qty: 1 0RF Rx Instructions: As directed Mounjaro 15 mg/0.5 mL pen injector 30 mg SUBCUT doxycycline hyclate 100 mg tablet 100 mg PO BID 7 Days Qty: 14 0RF (DME) Bipap machine and supplies See Rx Instructions .Route .MEDSUPPLY Qty: 1 0RF Rx Instructions: As directed bipap Auto titrating machine and supplies decrease settings to 17/13cm with heated humidity Discharge Orders: Discharge ED (Routine); Ordered 12/07/24 Ordered By: Andrew Sow Referrals: Javier Robertson, ANGELICA-C [Primary Care Provider, Family Practice] Discharge Diet: Usual diet Discharge Activity: Increase activity as tolerated Patient Instructions: Opioid Safety, Pain Management Activity Restrictions/Additional Instructions: Thank you for choosing [facility] for your healthcare needs today. It is very important that you follow up as instructed or that you return to the Emergency Department should you have concerns or if your condition changes or worsens in any way. You were seen in the emergency room with complaint of chest heaviness. Cardiac enzymes and EKGs did not show any acute changes. Will start you on baby aspirin daily also on Imdur 30 mg daily follow-up with cardiology lead case manager will make arrangements for you to have an outpatient Lexiscan sestamibi stress test. Print Language: Norwegian Coding Level of Care Code ED Crayon Molding Machine Operator for Harmony Vazquez
[2024-12-07] MEDS: aspirin 81 mg Chew Tablet 324 MG PO (17:38)
[2024-12-07 17:50] LABS: Basophils % 0.6 %; Eosinophils # 0.4 10^3/uL (0.0-0.8); Eosinophils % 6.8 %; Hematocrit 46.4 % (37-53); Lymphocytes # 0.8 10^3/uL (0.8-4.8); Lymphocytes % 15.1 %; Mean Corpuscular HGB Conc 33.2 g/dL (30-55); Mean Corpuscular Volume 90.4 fl (82-101); Mean Platelet Volume 11.7 fL (7.4-10.4); Monocytes # 0.6 10^3/uL (0.2-0.9); Monocytes % 11.2 %; Neutrophils # 3.46 10^3/uL (1.8-7.7); Neutrophils % 65.4 %; Nucleated Red Blood Cells % 0 %; Platelet Count 181 10^3/cmm (157-399); Red Blood Count 5.13 10^6/uL (3.85-5.65); White Blood Count 5.29 10^3/uL (3.29-11.43)
[2024-12-07 18:03] LABS: Troponin(5th) Baseline 60 ng/L (0-15)
[2024-12-07 18:04] LABS: Alanine Aminotransferase 42 U/L (0-41); Alkaline Phosphatase 102 U/L (40-130); Anion Gap 17.9 (5-19); Aspartate Amino Transferase 29 U/L (0-40); Blood Urea Nitrogen 11 mg/dL (8-23); Calcium 8.8 mg/dL (8.5-10.5); Carbon Dioxide 23 mmol/L (22-29); Chloride 102 mmol/L (98-107); Creatinine Clr Calc Pharmacy 139.7422; Globulin 2.4 g/dL (1.3-4.6); Glomerular Filtration Rate 86.1 mL/min (90-130); Glucose 100 mg/dL (65-115); Osmolality Calculated 287 mOsm/kg (285-295); Potassium 3.9 mmol/L (3.5-5.1); Sodium 139 mmol/L (136-145); Total Bilirubin 0.6 mg/dL (0.15-1.2); Total Protein 6.4 g/dL (6.6-8.7)
[2024-12-07 18:38] VITALS: PULSE 87; O2SAT 97
[2024-12-07 18:54] LABS: NT Pro B Type Natriuretic Pept 914 pg/mL (0-125)
[2024-12-07 19:34] LABS: Troponin 5 2HR 60.52 ng/L (0-15); Troponin 5 2HR Delta 0.52 ABS# (0-10)
--- NOTE | 2024-12-07 19:48 | ECG_ITS ---
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 Measurements Intervals [place] Rate: 81 P: 29 NC: 158 QRS: 21 QRSD: 96 T: 72 QT: 330 QTc: 385 Interpretive Statements SINUS RHYTHM WITH OCCASIONAL VENTRICULAR PREMATURE COMPLEXES WITH OCCASIONAL SUPRAVENTRICULAR PREMATURE COMPLEXES NONSPECIFIC T-WAVE ABNORMALITY Compared to ECG 12/07/2024 17:06:39 Ventricular premature complex(es) now present T-wave abnormality now present Myocardial infarct finding no longer present Electronically Signed On 12-09-2024 22:22:00 CDT by Bao Dennison M.D. [email or web address]
[2024-12-07 20:00] VITALS: BP 140/81; PULSE 82; RESP 17; O2SAT 96
[2024-12-07 20:17] LABS: Bacteria Urine None Seen /hpf; Hyaline Casts Urine 2.87 /lpf; Squamous Epithelial Cell Urine 0-5 /hpf (0-5); WBC Urine 0-5 /hpf (0-5)
[2024-12-07 20:23] LABS: Bilirubin Urine 1+ (Negative); Blood Urine Negative (Negative); Glucose Urine UA Negative (Normal); Ketones Urine Trace (Negative); Leukocyte Esterase Urine Negative (Negative); Nitrate Urine Negative (Negative); Protein Urine Trace (Negative); Urine Appearance Clear (CLEAR); pH Urine 5.5 (5-7)
[2024-12-07 20:28] LABS: Specific Gravity, Urine 1.034 (1.005-1.030); Urine Color Orange (Yellow)
[2024-12-07 20:36] VITALS: BP 140/81; PULSE 68; RESP 18; O2SAT 98
== END 2024-12-07 20:35 | disposition home or self-care (01) ==
PROVIDERS: Emergency Provider Family Medicine; PCP Nurse Practitioner
DX: R07.89 Other chest pain (principal); G47.33 Obstructive sleep apnea (adult) (pediatric); E11.9 Type 2 diabetes mellitus without complications; Z79.85 Long-term (current) use of injectable non-insulin antidiabetic drugs; F17.200 Nicotine dependence, unspecified, uncomplicated; Z82.49 Family history of ischemic heart disease and other diseases of the circulatory system
CPT/HCPCS: 36415; 71045; 80053; 81001; 83880; 84484; 85025; 93005; 99285; J9999

== ENCOUNTER 2025-06-09 07:29 | Emergency (ER) | payer OTHER, SELFPAY ==
[2025-06-09 07:34] VITALS: BP 156/95; PULSE 80; RESP 20; TEMP 36.5; O2SAT 97
[2025-06-09 07:39] VITALS: BP 156/95; PULSE 73; O2SAT 95
--- NOTE | 2025-06-09 07:45 | XR_ITS ---
WS: [id number] XR femur LT min 2V* [id number] REASON FOR EXAM: trauma FINDINGS: Moderate osteoarthritis in the left hip joint. The femoral head, neck, and intertrochanteric region are intact without fracture. Femoral shaft is intact without fracture. Femoral condyles intact without fracture. Quadriceps attachment to the patella appears intact. XR/XR femur LT min 2V* [id number] IMPRESSION: No acute abnormality
--- NOTE | 2025-06-09 08:00 | W.ED.EXTPRO ---
HPI - Extremity Problem General: Chief complaint: Extremity Injury, Lower Stated complaint: left leg pain Time Seen by Provider: 06/09/25 07:39 History of Present Illness: 59-year-old male presents emergency room complaining of left posterior thigh pain. Patient was cutting down a tree the tree began to fall at him so he took off suddenly Associated symptoms: Deny chest pain, fever(s) or rash Related Data Home Medications ?Medication ?Instructions ?Recorded ?Confirmed tirzepatide 15 mg/0.5 mL 15 mg SUBCUT .weekly 12/13/24 12/13/24 subcutaneous pen injector (Mounjaro) Previous Rx's ?Medication ?Instructions ?Recorded Bipap machine and supplies #1 ea 05/14/23 custom orthotic inserts #1 ea 09/11/23 doxycycline hyclate 100 mg tablet 100 mg PO BID 7 days #14 tabs 12/04/24 aspirin 81 mg tablet,delayed 81 mg PO DAILY #30 tabs 12/07/24 release isosorbide mononitrate 30 mg 30 mg PO DAILY #30 tabs 12/07/24 tablet,extended release 24 hr hydrocodone 5 mg-acetaminophen 325 1 tab PO Q6H PRN pain #10 tabs 06/09/25 mg tablet tizanidine 4 mg tablet 4 mg PO Q6H PRN muscle spasticity 06/09/25 #20 tabs Allergies Allergy/AdvReac Type Severity Reaction Status Date / Time No Known Allergies Allergy Verified 12/10/24 10:55 Review of Systems Const: Denies: fever(s) or chills Card: Denies: chest pain Resp: Denies: dyspnea GI: Denies: abdominal pain : Denies: dysuria, urinary frequency or urinary urgency Musc: Denies: neck pain or back pain Skin/Breast: Denies: rash PFSH ED PFSH: Medical History ROBBI treated with BiPAP Diabetes mellitus with hyperglycemia Hepatic steatosis Surgical History History of laparoscopic cholecystectomy History of colonoscopy 08/15/22 Family History Father , AT AGE 89, UNKNOWN CAUSE No problems noted. 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 Do you think of yourself as: Straight/Heterosexual Current gender identity: Male Physical Exam Const: COMMON NORMALS: no acute distress GENERAL APPEARANCE: cooperative and comfortable ORIENTATION/CONSCIOUSNESS: Yes awake, Yes oriented to person, Yes oriented to place and Yes oriented to time HENMT: COMMON NORMALS: normocephalic, atraumatic and hearing grossly normal bilaterally HEAD & SCALP: normocephalic and atraumatic Resp: COMMON NORMALS: normal respiratory effort, No retractions, No use of accessory muscles and clear to auscultation bilaterally AUSCULTATION: clear to auscultation bilaterally Cardio: COMMON NORMALS: regular rate, regular rhythm and No murmurs present (Cardio) RATE: regular rate RHYTHM: regular rhythm GI: COMMON NORMALS: Soft to palpation and No hepatosplenomegaly present AUSCULTATION: Yes normoactive bowel sounds PALPATION: Yes Soft to palpation, No Tenderness to palpation present (GI), No Guarding due to palpation present (GI) and Yes No hepatosplenomegaly present Extremity: COMMON NORMALS: normal to inspection, capillary refill normal, no clubbing, cyanosis or edema, no calf tenderness and no pedal edema Neuro: SENSORIUM/ORIENTATION: Yes oriented to person, Yes oriented to place and Yes oriented to time Skin: COMMON NORMALS: no rashes or lesions noted GENERAL SKIN EXAM: no rashes or lesions noted Course Vital Signs: Vital signs: Vital Signs Temperature 97.7 F 06/09/25 07:34 Pulse Rate 78 06/09/25 08:33 Respiratory Rate 20 H 06/09/25 07:34 Blood Pressure 156/95 06/09/25 08:33 Pulse Oximetry 97 06/09/25 08:33 Oxygen Delivery Me thod Room Air 06/09/25 07:39 MDM - Extremity (Nontraumatic) Medical Decision Making Medical decision making Social determinants: None I reviewed the patient's medical record. I reviewed the patient's current home meds. Alternate historians: None Differential diagnosis: Fracture versus soft tissue injury Lab Review: None Imaging: X-ray of the femur negative for acute fracture Assessment of risk Level of risk: Low Hospitalization considerations: No need for hospitalization Reexamination: Stable unchanged Assessment and plan: Based on the history and exam suspect patient had a left hamstring tear. Will discharge patient. Patient has appointment with Dr. Rojas tomorrow in the Ortho clinic recommend nonweightbearing elevate apply ice pain medications given as well as muscle relaxers Lab Data Radiology Impressions Femur X-Ray 06/09/25 07:45 IMPRESSION: No acute abnormality All radiology interpretation(s) finalized by discharge Discharge Plan Discharge Patient Disposition: Home Clinical Impression: Hamstring muscle strain Condition: Stable Prescriptions: New tizanidine 4 mg tablet 4 mg PO Q6H PRN (Reason: muscle spasticity) Qty: 20 0RF Rx Instructions: do not exceed 3 doses per 24 hrs hydrocodone-acetaminophen 5-325 mg tablet 1 tab PO Q6H PRN (Reason: pain) Qty: 10 0RF No Action (DME) custom orthotic inserts See Rx Instructions .Route .MEDSUPPLY Qty: 1 0RF Rx Instructions: As directed doxycycline hyclate 100 mg tablet 100 mg PO BID 7 Days Qty: 14 0RF Mounjaro 15 mg/0.5 mL pen injector 15 mg SUBCUT .weekly (DME) Bipap machine and supplies See Rx Instructions .Route .MEDSUPPLY Qty: 1 0RF Rx Instructions: As directed bipap Auto titrating machine and supplies decrease settings to 17/13cm with heated humidity isosorbide mononitrate 30 mg tablet extended release 24 hr 30 mg PO DAILY Qty: 30 0RF aspirin 81 mg tablet,delayed release (DR/EC) 81 mg PO DAILY Qty: 30 0RF Discharge Orders: Discharge ED (Routine); Ordered 06/09/25 Ordered By: Andrew Sow Referrals: Javier Robertson, [facility] [Primary Care Provider, Family Practice] Patient Instructions: Opioid Safety, Pain Management, Patient Portal & Anastacio Instructions Activity Restrictions/Additional Instructions: Thank you for choosing [facility] for your healthcare needs today. It is very important that you follow up as instructed or that you return to the Emergency Department should you have concerns or if your condition changes or worsens in any way. Emergency department visits are focused on emergent conditions, in some cases you may require further evaluation on an outpatient basis. You were seen in the emergency room with complaints of pain in your left posterior thigh based on the history provided suspect you tore your hamstring muscle. X-ray was unremarkable. You are given prescription for pain medications and muscle relaxer. They have an appointment for you at the orthopedic clinic tomorrow at 1:[address] Rojas (Please note that included in your discharge packet is information concerning opioid safety and pain management. This information is given to all patients were discharged from the ER regardless of their discharge diagnosis or the medicines they usually take or are prescribed.) Print Language: Martiniquais Coding Level of Care Code ED Government Auditor for Harmony Vazquez
[2025-06-09] MEDS: HYDROcodone-acetaminophen 5-325 mg Tablet 1 TAB PO (08:02)
[2025-06-09 08:33] VITALS: BP 156/95; PULSE 78; O2SAT 97
== END 2025-06-09 08:37 | disposition home or self-care (01) ==
PROVIDERS: Emergency Provider Family Medicine; PCP Nurse Practitioner
DX: S76.812A Strain of other specified muscles, fascia and tendons at thigh level, left thigh, initial encounter (principal); Z79.82 Long term (current) use of aspirin; Z72.0 Tobacco use; E11.9 Type 2 diabetes mellitus without complications; X58.XXXA Exposure to other specified factors, initial encounter
CPT/HCPCS: 73552; 99283; J9999